=== PATIENT | female | born 1995 | race Caucasian/White ===

== ENCOUNTER 2016-12-11 13:25 | Day surgery (SDC) | payer OTHER ==
[2016-12-11] VITALS (8 sets, daily range): BP systolic 109–132; BP diastolic 68–88; PULSE 64–111; RESP 12–17; O2SAT 99–100
[~2016-12-11] VITALS: Ht 162.6 cm; Wt 36.5 kg
[~2016-12-11 13:25] MED LIST: ALBU8.5H2 INHALATION; ALPR0.25 PO; CeFAZolin Inj 2 GM in IV Premix 1 EACH IV ONE; DEXT10TA8 PO; HYDR-656 PO; IBUP-1827 PO; KTC2C15 TP; Lactated Ringer's 1,000 ML IV SCH; MEDR150D9 IM
[2016-12-11] MEDS ORDERED: Dexamethasone 4 mg/mL Inj ONE (13:26)
[2016-12-11] MEDS ORDERED: Ondansetron 2 mg/mL 2 mL Inj ONE (13:26)
[2016-12-11] MEDS ORDERED: fentaNYL-PF 50 mCg/mL 2 mL Inj ONE ×2 (13:26→15:26)
[2016-12-11] MEDS ORDERED: Propofol 10,000 mCg/mL 20 mL Inj ONE (13:26)
--- NOTE | 2016-12-11 14:06 | PCM.HPANE ---
Patient Data Surgeon Admitting Provider: Attending Provider:Daniel Valencia MD Primary Care Physician:Merced Acuna PA-C Other Provider: Reason for Visit Pilonidal Cyst Ht/WT & BMI Height (Feet): 5 Height (Inches): 4 Weight (Kilograms): 58.97 Body Mass Index 22.00 Allergies Coded Allergies: No Known Allergies (Unverified , 12/11/16) Past Anesthesia History Anesthesia History: Denies:: Abnormal Airway, Anesthesia Reactions, Difficult Intubation, Fam Anesthesia Reaction Diabetes History Hx Diabetes?: No MRSA MRSA: No Medications Hypertension Medication: No Home Meds Incl Beta Ofelia: No Reported Medications Alprazolam (Xanax)0.25 Mg Tablet0.25 Mg PO DIRECTED PRN dressing change Ref 0 12/09/16 Albuterol HFA (Proair HFA)8.5 Gm Hfa.aer.ad2 Puffs INHALATION ASDIRECTED #1 INHALER 2 puffs 15min prior to exercise 12/09/16 Ketoconazole 15 Gm Cream..g.15 Gm TP TID PRN skin irritation 12/09/16 Ibuprofen 600 Mg [id number] Mg PO TID PRN For Pain Ref 0 12/09/16 hydrOXYzine Hcl (HydrOXYzine Hcl)25 Mg Engeyr70 Mg PO HS PRN Insomnia 12/09/16 Medroxyprogesterone Acetate (Depo-Provera)150 Mg/1 Ml [id number] Mg IM [id number] 12/09/16 Dextroamphetamine/Amphetamine (Adderall)10 Mg Bhqrdv38 Mg PO DAILY Ref 0 12/09/16 Discontinued Scripts Ibuprofen 600 Mg Rvazkw776 Mg PO QID PRN For Pain #30 TABLET Prov:Eddie Goodson MD 07/24/16 Amoxicillin/Clav K 875-125 mg (Augmentin 875-125 mg)1 Each Tablet1 Tablet PO BID #20 TABLET Prov:Eddie Goodson MD 07/24/16 History History of ENT Problems?: Yes HEENT History: Denies:: Abnormal Airway Cataracts Difficult Intubation Dysphagia Glaucoma Hearing Problem (ear tubes as child) Sinus Problem TMJ (grinds occasionally- no nightguard) Denture Type: None Teeth Condition: Within Normal Limits Hx of Heart Problems?: No Cardiovascular History: Denies:: AICD Abdominal Aortic Aneurism Cardiac Surgery Chest Pain Congestive Heart Failure Coronary Artery Disease Edema Heart Murmur Hypertension Irregular Heartbeat Pacemaker Peripheral Vascular Hx of Respiratory Problem?: Yes Respiratory History: Positive for:: Asthma Use of Inhalers / NEBS Denies:: COPD Emphysema Oxygen Administration Pneumonia Tuberculosis Use of C-PAP Machine Hx Neurologic Problems?: No Neurological History: Denies:: Alzheimer's Disease CVA Dementia Headaches Multiple Sclerosis Parkinson's Disease Seizures TIA Hx of GI Problems?: Yes Gastrointestinal History: Denies:: Cirrhosis Diverticulitis Gall Bladder Disease Gastroesphageal Reflux Gastrointestinal Bleeding Heartburn Hepatitis Hiatal Hernia Liver Disease Rectal Bleeding Hx of Problems?: No Genitourinary History: Denies:: HX of Hemodialysis Kidney Stones Urinary Tract Infection Female Hx: Denies:: Currently Problems with Breasts? Skin History: Denies:: History Skin Disorders? Pressure Ulcers Hx Musculoskeletal Problems?: No Musculoskeletal History: Denies:: Back Injury Fibromyalgia Joint Replacement Musculoskeletal Trauma Myasthenia Gravis Osteoarthritis Systemic Lupus Hx of Psycho/Social Problems?: Yes Psycho Social History: Positive for:: Anxiety (ADHD) Hx Depression Hx Surgeries?: Yes (PE tubes x 4, tonsil) Hx Any Other Health Problems?: Yes Other History: Denies:: Cancer Thyroid Disease History Blood Transfusions: Positive for:: Accept Blood Products? Denies:: Blood Transfusions Hx Diabetes: No Hx Alcohol Use: YesAlcoholic Drinks Per Day: two drinks monthlyHx Substance Use: Yes (marijuana- inhale, randomly for sleep) Smoking Status: Unknown if Ever Smoker Stop/Bang S-Snoring: Do You Snore Loudly: No T-Tired: feel tired, fatigued: No O-Obsered: Observed not breath: No P-Blood Pressure: treated: No B- Body Mass Index > 35 kg/m2: No A- Age over 50: No N- Neck Large Circumference: No G- Gender Male: No HALINA Total Score: 0 Risk Assessment Category Category 1A: Patient has history of documented sleep apnea, and HAS NOT received any narcotic, sedative or anesthesia administration during this stay. Category 1B: Patient has history of documented sleep apnea, and HAS received any narcotic , sedative or anesthesia administration during this stay Category 2: Patient has SUSPECTED Obstructive Sleep Apnea, and HAS received any narcotic , sedative or anesthesia administration during this stay. Category 3: Patient has SUSPECTED Obstructive Sleep Apnea and HAS NOT received narcotic, sedative or anesthesia administration during this stay. Category 4: Outpatient in Procedural Areas with known sleep apnea or who screen positive for High Risk via the STOP/BANG questionnaire. Exam Exam General Appearance: Alert, Oriented X3, Cooperative, No Acute Distress HEENT/AIRWAY: MP 2 Lungs: Normal Air Movement Heart: Regular Rate/Rhythm Plan Impression Patient chart reviewed, patient interviewed and anesthestic plan with risks, benefits, and alternatives discussed, and informed consent obtained. ASA Physical Status: ASA1 Normal Healthy Anesthetic Plan: GA Bene/Risks/Altern/Consents: Yes HP Complete Prior to Induction: Yes Other Patient has multiple subdermal piercings that must be surgically removed. I discussed the burn risk with the patient and her mother, Diogenes (RN) was present for this discussion. Patient expressed understanding and would like to proceed with surgery with the understanding she could suffer a burn. We will place the grounding pad on her calf, which is the only place available an furthest from the piercings. Alan Grey MD Dec 11, 2016 07:55 Shannon Lawson DO Dec 11, 2016 14:06
[2016-12-11] MEDS ORDERED: Bupivacaine-MPF 0.25%/EPI 30 mL Inj INJ ONE (14:31)
[2016-12-11] MEDS ORDERED: Lactated Ringer's 1,000 ML IV SCH (14:31)
[2016-12-11] MEDS ORDERED: Lactated Ringer's 500 ML IV PRN (14:31)
[2016-12-11] MEDS ORDERED: Ondansetron 2 mg/mL 2 mL Inj IVPUSH PRN (14:35)
[2016-12-11] MEDS ORDERED: MetoCLOpramide 5 mg/mL 2 mL Inj IVPUSH PRN (14:35)
[2016-12-11] MEDS ORDERED: oxyCODONE-Acetamin 5-325 mg Tablet PO PRN (15:20)
[2016-12-11] MEDS: fentaNYL-PF 50 mCg/mL 2 mL Inj IVPUSH PRN ×4 (15:30→15:46)
--- NOTE | 2016-12-11 23:30 | OP ---
[address] [address] OPERATIVE REPORT PATIENT: BRIGHT MADSEN : 1995 MR#: [id number] ADMIT: 12/11/2016 JOB ID: [id number] DATE OF SURGERY: 12/11/2016 ANESTHESIA: General. PREOPERATIVE DIAGNOSIS(ES): Chronic pilonidal disease. POSTOPERATIVE DIAGNOSIS(ES): Chronic pilonidal disease. OPERATIVE PROCEDURE: Excision of pilonidal disease with cleft lift procedure (approximately 20 cm2 of tissue rearrangement). SURGEON: Daniel Valencia MD. AUTO HEADLIGHT MECHANIC: Rodrigo Gomez PA-C (the placement assistant was required for the safe and timely completion of the case). COMPLICATIONS: None. ESTIMATED BLOOD LOSS: Less than 5 mL. CONDITION: Satisfactory. SPECIMEN: None. FINDINGS: She had predominantly right-sided pilonidal disease which was removed. A cleft lift was performed with approximately 20 cm2 of tissue rearrangement. INDICATIONS/SIGNIFICANT HISTORY: The patient is a 21-year-old female who has been struggling with pilonidal disease for the last few months. She has had multiple incision and drainages. She initially elected for nonoperative management, but after recent recurrence decided to proceed with surgery. OPERATIVE TECHNIQUE: The patient was taken to the operating room and placed in supine position. General anesthesia was administered and she was placed in a prone position. Preoperative antibiotics were given. The perineum and buttocks were prepped and draped in standard surgical fashion. A procedure pause was performed. The patient had been marked preoperatively in the standard position to delineate the zones of safety. Local anesthetic was injected with epinephrine. I created an incision to the left of the disease and elevated skin flap valve out to my zone of safety on the left. I then excised the diseased skin. I ensured prior to completely removing the skin that my flap would reach. The scar tissue was abraded to remove any debris and then sliced into small cubes to allow for the tissue rearrangement. I then closed bringing the left-sided flap over to the right side to elevate the flaps with off the midline closure. Deep tissue was closed with three layers of interrupted 3-0 PDS. The skin was closed using 3-0 Monocryl. Prior to closure a 10-Divehi FELY drain was placed deep just above the coccyx and then brought out through a right lateral stab incision. Dermabond was applied. The entire procedure was well tolerated without complication. EVERARDO
== END 2016-12-11 23:59 | disposition home or self-care (01) ==
LOC: SAS 13:25
PROVIDERS: ATTEND General Practice
DX: L05.01 Pilonidal cyst with abscess (principal); F32.9 Major depressive disorder, single episode, unspecified; F41.8 Other specified anxiety disorders; F98.8 Other specified behavioral and emotional disorders with onset usually occurring in childhood and adolescence; Z79.51 Long term (current) use of inhaled steroids
CPT/HCPCS: 11772; 14001; J0690; J1100; J2250; J2405; J3010; J7120